=== PATIENT | male | born 1960 | race Caucasian/White ===

== ENCOUNTER 2022-04-29 09:55 | Emergency (ER) | payer BC ==
[~2022-04-29] VITALS: Ht 177.8 cm; Wt 72.6 kg
[2022-04-29] MEDS ORDERED: MORPHINE SULFATE 4 MG/1 ML DISP.SYRIN IV ONE ×2 (10:00→11:15)
[2022-04-29] MEDS ORDERED: ONDANSETRON 4 MG/2 ML VIAL IV ONE (10:00)
[2022-04-29] MEDS ORDERED: IV NORMAL SALINE 1000 ML BAG IV ONE (10:00)
[2022-04-29] MEDS ORDERED: IV NORMAL SALINE 250 ML IV ONE (10:15)
[2022-04-29] MEDS ORDERED: IOHEXOL 300MG/ML 100 ML INFUS..BTL ONE (10:15)
[2022-04-29] MEDS ORDERED: SWABABLE VALVE TRANSFER SET EA MC ONE (10:15)
[2022-04-29 10:20] LABS: MEAN CORPUSCULAR HEMOGLOBIN 30.7 uug (23.8-33.4); MEAN CORPUSCULAR VOLUME 91.4 fL (73.0-96.2); PLATELET COUNT (AUTO) 152 K/uL (152-348)
[2022-04-29 10:21] LABS: *BILIRUBIN,URIN 3+ (NEGATIVE); *BLOOD, URINE 3+ (NEGATIVE); *CLARITY,URINE TURBID (CLEAR); *COLOR,URINE RED (YELLOW); *KETONES,URINE 1+ (NEGATIVE); LEUKOCYTE ESTERASE ,URINE 3+ (NEGATIVE); NITRITE, URINE NEGATIVE (NEGATIVE); PH,URINE 8.5 (5.0-8.0); UGLUCOSE NEGATIVE (NEGATIVE)
[2022-04-29 10:28] LABS: CREATININE 0.9 mg/dL (0.6-1.3); POTASSIUM 3.7 mmol/L (3.5-5.1)
[2022-04-29 10:34] LABS: BILIRUBIN,DIRECT 0.1 mg/dL (0.0-0.2); BILIRUBIN,TOTAL 0.5 mg/dL (0.2-1.0)
[2022-04-29] MEDS ORDERED: ONDANSETRON 4 MG/2 ML VIAL ONE (10:42)
[2022-04-29] MEDS ORDERED: MORPHINE SULFATE 4 MG/1 ML DISP.SYRIN ONE ×2 (10:42→11:21)
[2022-04-29] MEDS ORDERED: DOXY40CP2 PO (11:03)
[2022-04-29 11:10] LABS: RBC,URINE TNTC /HPF (0-3)
[2022-04-29 11:14] LABS: BACTERIA,URINE NONE SEEN /HPF (NONE SEEN); SQUAMOUS EPITHELIAL CELL,UR FEW /HPF (NONE SEEN)
[2022-04-29] MEDS ORDERED: LIDOCAINE 5% PATCH TD ONE ×2 (11:15→11:21)
[2022-04-29] MEDS ORDERED: ACETAMINOPHEN 325 MG TABLET PO ONE (11:15)
[2022-04-29] MEDS ORDERED: ACETAMINOPHEN 325 MG TABLET ONE (11:21)
[2022-04-29] MEDS ORDERED: BACL10TA PO (11:33)
[2022-04-29] MEDS ORDERED: ACET-2154 PO (11:33)
[2022-04-29] MEDS ORDERED: ONDA4TAB5 PO (23:00)
[2022-04-29] MEDS ORDERED: OXYC-133 PO (23:00)
== END 2022-04-29 12:20 | disposition home or self-care (01) ==
LOC: ER 09:55
DX: R10.12 Left upper quadrant pain (principal); R31.0 Gross hematuria; N28.89 Other specified disorders of kidney and ureter; S60.512A Abrasion of left hand, initial encounter; S60.511A Abrasion of right hand, initial encounter; W18.30XA Fall on same level, unspecified, initial encounter; Y93.02 Activity, running; Y92.89 Other specified places as the place of occurrence of the external cause; Z91.14 Patient's other noncompliance with medication regimen
CPT/HCPCS: 99285; 74177; 96374; 71045; 96361; 96375; 80076; 80048; 81001; 83690; 85025; 86850; 86900; 86901; 87086; 36415; 96376; J2405; Q9967; J2270 ×2; J7040

== ENCOUNTER 2022-04-29 18:47 | Emergency (ER) | payer BC ==
[~2022-04-29] VITALS: Ht 177.8 cm; Wt 72.6 kg
[~2022-04-29 18:47] MED LIST: ACET-2154 PO; BACL10TA PO; DOXY40CP2 PO
--- NOTE | 2022-04-29 19:23 | NUR ---
After being triaged, patient was placed back in waiting room due to no beds in the ER and patient in the hallway.
--- NOTE | 2022-04-29 19:55 | NUR ---
PATIENT PLACED IN 4A AT THIS TIME.
--- NOTE | 2022-04-29 20:02 | NUR ---
Patient was seen here earlier for a trip and fall and hitting his left abdominal wall with water bottle. Came back for worsening pain and nausea. He states that he took norco 3hrs ago but not effective for pain.
--- NOTE | 2022-04-29 20:06 | NUR ---
Dr. Dobson on bedside for MSE.
[2022-04-29] MEDS ORDERED: HYDROMORPHONE 1 MG/1 ML DISP.SYRIN IV ONE (20:15)
[2022-04-29] MEDS ORDERED: ONDANSETRON 4 MG/2 ML VIAL IV ONE (20:15)
[2022-04-29] MEDS ORDERED: IV NORMAL SALINE 1000 ML BAG IV ONE ×2 (20:15→22:00)
[2022-04-29] MEDS ORDERED: ONDANSETRON 4 MG/2 ML VIAL ONE (20:30)
[2022-04-29] MEDS ORDERED: HYDROMORPHONE 1 MG/1 ML DISP.SYRIN ONE (20:30)
[2022-04-29] MEDS ORDERED: IV NORMAL SALINE 250 ML IV ONE (20:53)
[2022-04-29] MEDS ORDERED: SWABABLE VALVE TRANSFER SET EA MC ONE (20:53)
[2022-04-29] MEDS ORDERED: IOHEXOL 300MG/ML 100 ML INFUS..BTL ONE (20:53)
[2022-04-29 20:56] LABS: HEMATOCRIT 41.4 % (36.7-47.1); MEAN CORPUSCULAR HEMOGLOBIN 30.7 uug (23.8-33.4); MEAN CORPUSCULAR VOLUME 91.9 fL (73.0-96.2); PLATELET COUNT (AUTO) 144 K/uL (152-348)
[2022-04-29 21:14] LABS: CREATININE 1.2 mg/dL (0.6-1.3); POTASSIUM 3.8 mmol/L (3.5-5.1)
[2022-04-29 21:19] LABS: BILIRUBIN,DIRECT 0.1 mg/dL (0.0-0.2); BILIRUBIN,TOTAL 0.9 mg/dL (0.2-1.0); TOTAL PROTEIN, SERUM 6.8 g/dL (6.4-8.2)
--- NOTE | 2022-04-29 21:34 | NUR ---
Back from CT
[2022-04-29 21:37] LABS: *BILIRUBIN,URIN NEGATIVE (NEGATIVE); *BLOOD, URINE 3+ (NEGATIVE); *COLOR,URINE YELLOW (YELLOW); *KETONES,URINE 2+ (NEGATIVE); *UROBILINOGEN,URINE 0.2 E.U./dl (NORMAL); LEUKOCYTE ESTERASE ,URINE TRACE (NEGATIVE); NITRITE, URINE NEGATIVE (NEGATIVE); PH,URINE 5.5 (5.0-8.0); UGLUCOSE NEGATIVE (NEGATIVE)
[2022-04-29 21:39] LABS: *CLARITY,URINE SLIGHTLY HAZY (CLEAR)
[2022-04-29 21:49] LABS: RBC,URINE 50-80 /HPF (0-3)
[2022-04-29 21:51] LABS: BACTERIA,URINE FEW /HPF (NONE SEEN); SQUAMOUS EPITHELIAL CELL,UR FEW /HPF (NONE SEEN)
[2022-04-29] MEDS ORDERED: METOCLOPRAMIDE HCL 10 MG/2 ML VIAL ONE (22:18)
[2022-04-29] MEDS ORDERED: METOCLOPRAMIDE HCL 10 MG/2 ML VIAL IV ONE (22:30)
[2022-04-29] MEDS ORDERED: OXYC-133 PO (23:00)
[2022-04-29] MEDS ORDERED: ONDA4TAB5 PO (23:00)
--- NOTE | 2022-04-29 23:08 | NUR ---
Patient discharged to home in stable condition. Written and verbal after care instructions given. Patient verbalizes understanding of instructions. Stressed follow up or return to ER for worsening s/s.Patient ambulated fr the ER with steady gait. All belongings with patient.
[2022-04-29 23:23] VITALS: BP 153/90
== END 2022-04-29 23:08 | disposition home or self-care (01) ==
LOC: ER 18:50
DX: R31.0 Gross hematuria (principal); N28.89 Other specified disorders of kidney and ureter; R10.9 Unspecified abdominal pain; Z20.822 Contact with and (suspected) exposure to COVID-19; D72.829 Elevated white blood cell count, unspecified
CPT/HCPCS: 99285; 71260; 96374; 96375; 87426; 80076; 80048; 81001; 83690; 85025; 85730; 87086; 36415; 74177; J2765; J2405; Q9967; J1170; J7040 ×2; A4663